=== PATIENT | male | born 1960 | race Caucasian/White ===

== ENCOUNTER → 2023-02-26 11:34 | Outpatient (BNVA) | payer OTHER, SELFPAY | PROVIDERS: PCP Internal Medicine; Visit Provider Psychiatry & Neurology Psychiatry | DX: Z13.89 Encounter for screening for other disorder (principal) ==

== ENCOUNTER 2023-09-04 16:03 | Outpatient (AMB) | payer OTHER, SELFPAY ==
--- NOTE | 2023-09-04 16:17 | MHC.OFFVISPS ---
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 patient generally doing quite well no depressive symptoms agitation or significant anxiety Past Psychiatric History: history of stimulant treatment for ADD Mental Status Exam Mental Status Exam Narrative: Mental Status Exam Narrative: Appearance: Casually dressed Behavior: Cooperative appropriate psychomotor: Within normal limits Speech: Normal volume and prosody Thought proccess logical and goal-directed Thought content: Future oriented no self-harming thoughts Mood: Euthymic Affect: Appropriate to mood full affect SI:denies HI:denies VH/AH:none Delusions: None Insight/judgment: Good insight and judgment Memory/cog: Intact Assessment and Plan Assessment & Plan (1) ADD (attention deficit disorder): Status: Acute Code(s): F98.8 - Other specified behavioral and emotional disorders with onset usually occurring in childhood and adolescence Plan Patient continues to generally be stable continues to feel that Concerta is quite helpful no complaints of side effects palpitations agitation Counseling and coordination of Care Diagnosis and Prognosis Counseling: Impact of diagnosis on life functions and Adequacy of current interventions Details: I spent [] minutes reviewing the record, seeing the patient and documenting in the medical record. Counseling provided to the patient/caregiver as outlined below. Addressed patient/caregiver concerns regarding current medication regime including effective adherence. Addressed patient/caregiver concerns regarding diagnosis and prognosis including accuracy of diagnosis, prognosis over time, impact of diagnosis. Addressed patient/caregiver concerns regarding impact of recent stressors. 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
== END 2023-09-04 16:50 | disposition home or self-care (01) ==
LOC: HO.HOP 16:03
PROVIDERS: PCP Internal Medicine; Visit Provider Psychiatry & Neurology Psychiatry
DX: F98.8 Other specified behavioral and emotional disorders with onset usually occurring in childhood and adolescence (principal)
CPT/HCPCS: 99213

== ENCOUNTER → 2023-09-04 16:03 | Outpatient (BNVA) | payer OTHER, SELFPAY | PROVIDERS: PCP Internal Medicine; Visit Provider Psychiatry & Neurology Psychiatry ==

== ENCOUNTER 2024-01-03 12:00 | Outpatient (AMB) | payer OTHER, SELFPAY ==
[2024-01-03 12:41] VITALS: BP 130/85; PULSE 60
--- NOTE | 2024-01-03 12:41 | MHC.OFFVISPS ---
Intake Vital Signs 01/03/24 12:41 BP 130/85 Pulse 60 Intake Visit Reasons: depression Allergies Sulfa (Sulfonamide Antibiotics) Allergy (Unknown, Verified 08/20/19 00:00) HPI- Psychiatric Chief Complaint: depression HPI Narrative: Patient seen psychiatric follow-up patient's mood is stable he feels well on Concerta generic 18 mg. No palpitations shortness breath chest pain or decreased appetite feels it continues to be quite helpful for work. No new medical problems things going well at work. His daughter moved back to the [facility] to work as a charter captain Past Psychiatric History: history of stimulant treatment for ADD Mental Status Exam Mental Status Exam Narrative: Mental Status Exam Narrative: Appearance: Casually dressed Behavior: Cooperative appropriate psychomotor: Within normal limits Speech: Normal volume and prosody Thought proccess logical and goal-directed Thought content: Future oriented no self-harming thoughts Mood: Euthymic Affect: Appropriate to mood full affect SI:denies HI:denies VH/AH:none Delusions: None Insight/judgment: Good insight and judgment Memory/cog: Intact Assessment and Plan Assessment & Plan (1) ADD (attention deficit disorder): Status: Acute Code(s): F98.8 - Other specified behavioral and emotional disorders with onset usually occurring in childhood and adolescence Plan Patient has generally been stable no complaints of chest pain shortness breath palpitations. Has full range affect work going well as is his home life. Continues to feel relatively low-dose Concerta is helpful at 18 mg continue plan of care. Patient to discuss with his primary care physician taking over prescribing and treatment of ADD. Patient has been stable for many years no complex situation Medications: Refilled methylphenidate HCl ER (Concerta) 18 mg PO DAILY 60 tabs 0RF Counseling and coordination of Care Medication management counseling: Effectiveness, Side effects and Dosing range Diagnosis and Prognosis Counseling: Adequacy of current interventions Details: I spent [25] minutes reviewing the record, seeing the patient and documenting in the medical record. Counseling provided to the patient/caregiver as outlined below. Addressed patient/caregiver concerns regarding current medication regime including effective adherence. Addressed patient/caregiver concerns regarding diagnosis and prognosis including accuracy of diagnosis, prognosis over time, impact of diagnosis. Addressed patient/caregiver concerns regarding impact of recent stressors. 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
== END 2024-01-03 12:30 | disposition home or self-care (01) ==
LOC: HO.HOP 01-07 17:33
PROVIDERS: PCP Internal Medicine; Visit Provider Psychiatry & Neurology Psychiatry
DX: F98.8 Other specified behavioral and emotional disorders with onset usually occurring in childhood and adolescence (principal)
CPT/HCPCS: 99214

== ENCOUNTER → 2024-01-03 12:00 | Outpatient (BNVA) | payer OTHER, SELFPAY | PROVIDERS: PCP Internal Medicine; Visit Provider Psychiatry & Neurology Psychiatry | DX: F98.8 Other specified behavioral and emotional disorders with onset usually occurring in childhood and adolescence (principal) ==

== ENCOUNTER → 2024-01-07 17:13 | Outpatient (BNVA) | payer OTHER, SELFPAY | PROVIDERS: PCP Internal Medicine; Visit Provider Psychiatry & Neurology Psychiatry | DX: F98.8 Other specified behavioral and emotional disorders with onset usually occurring in childhood and adolescence (principal) ==